=== PATIENT | female | born 1945 | race Caucasian/White ===

== ENCOUNTER → 2022-03-06 | Day surgery (SDC) | payer MEDICARE, OTHER ==
[~2022-03-06] VITALS: Ht 154.9 cm; Wt 81.2 kg
[~2022-03-06] MED LIST: ALLOPURINOL100 MG PO; ASPIRIN EC81 MG PO; BENICAR *OUT OF20 MG PO; BISOPROLOL FUMAR5 M1 PO; BISOPROLOL FUMAR5 MG PO; CALCITONIN-SAL3.7 ML; COZAAR50 MG PO; CRESTOR5 MG PO; FLONASE ALLERG9.9 ML; FLOVENT HFA12 GM INH; HCTZ25 MG PO; LASIX20 MG PO; LEVOXYL100 MCG PO; NORCO 5-325 TA1 EACH PO; OMEGA 3 1,0001 EACH PO; SINGULAIR10 MG PO; VENTOLIN HFA IN18 GM INH; ZYRTEC10 M3 PO
[2022-03-06 09:36] LABS: HCT 43.1 % (37.0-47.0); HGB 14.2 g/dl (12.5-16.0); MCH 31.3 pg (25.0-31.0); MCHC 32.9 g/dL (32.0-36.0); MCV 94.9 fL (78.0-100.0); MPV 9.5 fL (6.0-9.5); RBC 4.54 M/uL (4.20-5.40); RDW 13.7 % (11.5-14.0); WBC 7.7 K/uL (4.0-10.5)
[2022-03-06 10:21] LABS: BUN/CREAT RATIO (CALC) 19.6 RATIO; CREATININE 1.12 mg/dL (0.51-0.95); POTASSIUM 4.3 mmol/L (3.5-5.1)
== END | disposition home or self-care (01) ==
LOC: FAS 08:03
PROVIDERS: Obstetrics & Gynecology
DX: N84.0 Polyp of corpus uteri (principal); R93.89 Abnormal findings on diagnostic imaging of other specified body structures; Z88.1 Allergy status to other antibiotic agents
CPT/HCPCS: 36415; 80048; 86850; 86900; 86901; J1100; J2405; J2704; J3010; J7120